=== PATIENT | female | born 1995 | race Caucasian/White ===

== ENCOUNTER 2017-12-08 11:44 | Inpatient (IN) | payer OTHER ==
[2017-12-08] MEDS ORDERED: ceFAZolin 2 GM in Premix Bag 1 BAG IV ONE (11:56)
[2017-12-08] MEDS ORDERED: Sodium Chloride 0.9% 10 ML Syringe FLUSH PRN (11:56)
[2017-12-08] MEDS ORDERED: Sodium Chloride 0.9% 2.5 ML Syringe FLUSH PRN (11:56)
[2017-12-08] MEDS ORDERED: Oxytocin/0.9 % Sodium Chloride 30 UNIT/500 ML BAG IV SCH (12:00)
[2017-12-08] MEDS ORDERED: Citric Acid/Sodium Citrate Solution 30 ML Cup PO SCH (12:00)
[2017-12-08] MEDS: Lactated Ringers 1,000 ML IV SCH ×4 (12:15→23:20)
--- NOTE | 2017-12-08 12:38 | PCM.PREANE ---
Preanesthetic Assessment - Anesthesia/Transfusion/Family Hx Anesthesia History: Prior Anesthesia Without Reaction Family History of Anesthesia Reaction: No Transfusion History: No Prior Transfusion(s) - Review of Systems General: No Symptoms Pulmonary: No Symptoms Cardiovascular: No Symptoms Gastrointestinal: No Symptoms Neurological: No Symptoms Other: Reports: None - Physical Assessment NPO Status Date: 12/07/17 Height: 1.63 m Weight: 90.265 kg ASA Class: 2 Mental Status: Alert & Oriented x3 Airway Class: Mallampati = 1 Dentition: Reports: Normal Dentition ROM/Head Extension: Full Lungs: Clear to Auscultation, Normal Respiratory Effort Cardiovascular: Regular Rate, Regular Rhythm - Lab Values: Laboratory Last Values WBC 7.50 K/uL (4.0-11.0) 12/08/17 12:12 RBC 4.24 M/uL (4.30-5.90) L 12/08/17 12:12 Hgb 12.1 g/dL (12.0-16.0) 12/08/17 12:12 Hct 36.5 % (36.0-46.0) 12/08/17 12:12 MCV 86.1 fL (80.0-98.0) 12/08/17 12:12 MCH 28.5 pg (27.0-32.0) 12/08/17 12:12 MCHC 33.2 g/dL (31.0-37.0) 12/08/17 12:12 RDW Std Deviation 47.0 fl (28.0-62.0) 12/08/17 12:12 RDW Coeff of Po 15 % (11.0-15.0) 12/08/17 12:12 Plt Count 211 K/uL (150-400) 12/08/17 12:12 MPV 10.80 fL (7.40-12.00) 12/08/17 12:12 Nucleated RBC % 0.0 /100WBC 12/08/17 12:12 Nucleated RBCs # 0 K/uL 12/08/17 12:12 - Allergies Allergies/Adverse Reactions: Allergies Allergy/AdvReac Type Severity Reaction Status Date / Time No Known Allergies Allergy Verified 12/06/17 09:15 - Anesthesia Plan Pre-Op Medication Ordered: Antacids (primary c section for breech presentation) - Acknowledgements Anesthesia Type Planned: Spinal Pt an Appropriate Candidate for the Planned Anesthesia: Yes Alternatives and Risks of Anesthesia Discussed w Pt/Guardian: Yes Pt/Guardian Understands and Agrees with Anesthesia Plan: Yes PreAnesthesia Questionnaire - Past Health History Medical/Surgical History: Denies Medical/Surgical History Gastrointestinal History: Reports: Other (See Below) Other Gastrointestinal History: heartburn during [employer] History: Reports: Endocrine/Metabolic History: Reports: Diabetes, Gestational - Past Surgical History HEENT Surgical History: Reports: Oral Surgery Other HEENT Surgeries/Procedures: wisdom teeth - SUBSTANCE USE Smoking Status *Q: Former Smoker Tobacco Use Within Last Twelve Months: No Recreational Drug Use History: No - HOME MEDS Home Medications: Home Meds Vits #93/Iron Fum/FA [ Formula Tablet] 1 each PO DAILY [History] - CURRENT (IN HOUSE) MEDS Current Meds: Current Medications Citric Acid/Sodium Citrate (Bicitra Solution) 30 ml PO .ONCE ASH Lactated Ringer's (Ringers, Lactated) 1,000 mls @ 500 mls/hr IV .BOLUS ASH Last Admin: 12/08/17 12:15 Dose: 500 mls/hr Oxytocin/Sodium Chloride (Oxytocin 30 Unit/500 Ml-Ns) 30 unit in 500 mls @ 250 mls/hr IV TITRATE ASH Sodium Chloride (Saline Flush) 10 ml FLUSH ASDIRECTED PRN PRN Reason: Keep Vein Open Sodium Chloride (Saline Flush) 2.5 ml FLUSH ASDIRECTED PRN PRN Reason: Keep Vein Open Discontinued Medications Cefazolin Sodium/Dextrose 2 gm (/ Premix) 50 mls @ 100 mls/hr IV ONETIME ONE Stop: 12/08/17 12:25
[2017-12-08] MEDS ORDERED: ePHEDrine 50 MG/ML SDV ONE (12:45)
[2017-12-08] MEDS ORDERED: Morphine PF 1 MG/ML Amp ONE (12:45)
[2017-12-08] MEDS ORDERED: Ondansetron 4 MG/2 ML SDV ONE (12:45)
[2017-12-08] MEDS ORDERED: Sodium Chloride 0.9% 20 ML ONE ×2 (12:45→12:48)
[2017-12-08] MEDS ORDERED: Oxytocin 10 Units/1 ML SDV ONE (12:45)
[2017-12-08] MEDS ORDERED: ceFAZolin 1 GM Vial ONE (12:48)
[2017-12-08] MEDS ORDERED: Octyl 2-Cyanoacrylate 1 Tube ONE (13:31)
[2017-12-08] MEDS ORDERED: Bisacodyl 10 MG Supp RECTAL PRN (13:56)
[2017-12-08] MEDS ORDERED: diphenhydrAMINE 50 MG/ML SDV IVPUSH PRN ×2 (13:56→14:06)
[2017-12-08] MEDS ORDERED: Ibuprofen 800 MG Tab PO PRN (13:56)
[2017-12-08] MEDS ORDERED: Ondansetron 4 MG/2 ML SDV IV PRN (13:56)
[2017-12-08] MEDS ORDERED: Lanolin 100% Cream 7 GM Tube TOP PRN (13:56)
--- NOTE | 2017-12-08 13:58 | PCM.LDHP ---
L&D History of Present Illness - General Date of Service: 12/08/17 Admit Problem/Dx: Patient Status Order with Admit Dx/Problem 12/08/17 11:56 Patient Status [ADT] Routine 12/08/17 13:56 Patient Status [ADT] Routine Admission Diagnosis/Problem Admission Diagnosis/Problem section Source of Information: Patient History Limitations: Reports: No Limitations - History of Present Illness Improves with: Reports: None Worsens with: Reports: None Associated Symptoms: Reports: N - Related Data Allergies/Adverse Reactions: Allergies Allergy/AdvReac Type Severity Reaction Status Date / Time No Known Allergies Allergy Verified 12/06/17 09:15 Home Medications: Home Meds Vits #93/Iron Fum/FA [ Formula Tablet] 1 each PO DAILY [History] Past Medical History - Past Health History Medical/Surgical History: Denies Medical/Surgical History Gastrointestinal History: Reports: Other (See Below) Other Gastrointestinal History: heartburn during [employer] History: Reports: Endocrine/Metabolic History: Reports: Diabetes, Gestational - Past Surgical History HEENT Surgical History: Reports: Oral Surgery Other HEENT Surgeries/Procedures: wisdom teeth Social & Family History - Family History Family Medical History: Noncontributory - Tobacco Use Smoking Status *Q: Former Smoker Tobacco Use Comment: quit 2.5 years ago - Recreational Drug Use Recreational Drug Use: No Drug Use in Last 12 Months: No H&P Review of Systems - Review of Systems: Review Of Systems: See Below General: Reports: No Symptoms HEENT: Reports: No Symptoms Pulmonary: Reports: No Symptoms Cardiovascular: Reports: No Symptoms Gastrointestinal: Reports: No Symptoms Genitourinary: Reports: No Symptoms Musculoskeletal: Reports: No Symptoms Skin: Reports: No Symptoms Psychiatric: Reports: No Symptoms Neurological: Reports: No Symptoms Hematologic/Lymphatic: Reports: No Symptoms Immunologic: Reports: No Symptoms L&D Exam - Exam Exam: See Below - Vital Signs Weight: 90.265 kg - OB Specific Contraction Intensity: Mild Movement: Active Heart Tones: Present Presentation: Breech - Exam General: Alert, Oriented HEENT: PERRLA, Conjunctiva Clear, EACs Clear, EOMI, Hearing Intact, Mucosa Moist & [place], Nares Patent, Normal Nasal Septum, Posterior Pharynx Clear, TMs Clear Neck: Supple, Trachea Midline Lungs: Clear to Auscultation, Normal Respiratory Effort Cardiovascular: Regular Rate, Regular Rhythm GI/Abdominal Exam: Normal Bowel Sounds, Soft, Non-Tender, No Organomegaly, No Distention, No Abnormal Bruit, No Mass, Pelvis Stable Rectal Exam: Normal Exam, Normal Rectal Tone Genitourinary: Normal external exam, Normal bimanual exam, Normal speculum exam Back Exam: Normal Inspection, Full Range of Motion Extremities: Normal Inspection, Normal Range of Motion, Non-Tender, No Pedal Edema, Normal Capillary Refill Skin: Warm, Dry, Intact Neurological: Cranial Nerves Intact, Reflexes Equal Bilateral Psychiatric: Alert, Normal Affect, Normal Mood - Patient Data Lab Results Last 24 hrs: Laboratory Results - last 24 hr 12/08/17 12/08/17 Range/Units 12:12 12:12 WBC 7.50 (4.0-11.0) K/uL RBC 4.24 L (4.30-5.90) M/uL Hgb 12.1 (12.0-16.0) g/dL Hct 36.5 (36.0-46.0) % MCV 86.1 (80.0-98.0) fL MCH 28.5 (27.0-32.0) pg MCHC 33.2 (31.0-37.0) g/dL RDW Std Deviation 47.0 (28.0-62.0) fl RDW Coeff of Po 15 (11.0-15.0) % Plt Count 211 (150-400) K/uL MPV 10.80 (7.40-12.00) fL Nucleated RBC % 0.0 /100WBC Nucleated RBCs # 0 K/uL Blood Type O POSITIVE Antibody Screen NEGATIVE Result Diagrams: 12/08/17 12:12 Problem List Initiated/Reviewed/Updated: Yes Orders Last 24hrs: Active Orders 24 hr Category Date Time Status Patient Status [ADT] Routine ADT 12/08/17 13:56 Ordered Ambulate [RC] PER UNIT ROUTINE Care 12/08/17 13:56 Ordered Communication Order [RC] PER UNIT ROUTINE Care 12/08/17 13:56 Ordered Communication Order [RC] PER UNIT ROUTINE Care 12/08/17 13:56 Ordered Communication Order [RC] Per Unit Routine Care 12/08/17 13:56 Ordered Non Stress Test [RC] PER UNIT ROUTINE Care 12/08/17 11:56 Active May Shower [RC] ASDIRECTED Care 12/08/17 13:56 Ordered Notify Provider Vital Signs [RC] PRN Care 12/08/17 11:58 Active Procedure Site Prep Instruct [RC] ASDIRECTED Care 12/08/17 11:56 Active RT Incentive Spirometry [RC] Q2HWA Care 12/08/17 13:56 Ordered Up ad Jayashree [RC] ASDIRECTED Care 12/08/17 11:56 Active Verify Patient Consent Obtain [RC] ASDIRECTED Care 12/08/17 11:56 Active Vital Signs [RC] PER UNIT ROUTINE Care 12/08/17 11:56 Active Vital Signs [RC] PER UNIT ROUTINE Care 12/08/17 13:56 Ordered HEMOGLOBIN/HEMATOCRIT,HH [HEME] Timed Lab 12/09/17 05:11 Ordered Acetaminophen/oxyCODONE [Percocet 325-5 MG] Med 12/08/17 13:56 Ordered 1 tab PO Q4H PRN Acetaminophen/oxyCODONE [Percocet 325-5 MG] Med 12/08/17 13:56 Ordered 2 tab PO Q4H PRN Bisacodyl [Dulcolax] Med 12/08/17 13:56 Ordered 10 mg RECTAL .ONCE PRN Citric Acid/Sodium Citrate [Bicitra Solution] Med 12/08/17 12:00 Active 30 ml PO .ONCE Docusate Sodium [Colace] Med 12/08/17 21:00 Ordered 100 mg PO BID Ibuprofen [Motrin] Med 12/08/17 13:56 Ordered 800 mg PO Q8H PRN Ketorolac [Toradol] Med 12/08/17 14:00 Ordered 30 mg IVPUSH Q6H Lactated Ringers @ 125 MLS/HR(1000ml) Med 12/08/17 14:00 Ordered Lactated Ringers [Ringers, Lactated] 1,000 ml IV ASDIRECTED Lactated Ringers [Ringers, Lactated] 1,000 ml Med 12/08/17 12:00 Active IV .BOLUS Lanolin [Lansinoh HPA] Med 12/08/17 13:56 Ordered See Dose Instructions TOP ASDIRECTED PRN Ondansetron [Zofran] Med 12/08/17 13:56 Ordered 4 mg IV Q4H PRN Oxytocin/0.9 % Sodium Chloride [Oxytocin 30 Unit/500 ML Med 12/08/17 12:00 Active -NS] 30 unit in 500 ml IV TITRATE Sodium Chloride 0.9% [Saline Flush] Med 12/08/17 11:56 Active 10 ml FLUSH ASDIRECTED PRN Sodium Chloride 0.9% [Saline Flush] Med 12/08/17 11:56 Active 2.5 ml FLUSH ASDIRECTED PRN diphenhydrAMINE [Benadryl] Med 12/08/17 13:56 Ordered 25 mg IVPUSH Q6H PRN Assess Lochia [WOMSER] Per Unit Routine Ot 12/08/17 13:56 Ordered Assess Uterine Involution [WOMSER] Per Unit Routine Ot 12/08/17 13:56 Ordered Breast Pump [WOMSER] Per Unit Routine Ot 12/08/17 13:56 Ordered Peripheral IV Discontinue [OM.PC] Routine Ot 12/08/17 13:56 Ordered Peripheral IV Insertion Adult [OM.PC] Routine Ot 12/08/17 11:56 Ordered Schedule Procedure [COMM] Per Unit Routine Ot 12/08/17 11:56 Ordered Sequential Compression Device [OM.PC] Per Unit Routine Ot 12/08/17 13:56 Ordered Resuscitation Status Routine Resus Stat 12/08/17 11:56 Ordered Medication Orders Citric Acid/Sodium Citrate (Bicitra Solution) 30 ml PO .ONCE ASH Last Admin: 12/08/17 13:13 Dose: 30 ml Lactated Ringer's (Ringers, Lactated) 1,000 mls @ 500 mls/hr IV .BOLUS ASH Last Admin: 12/08/17 13:00 Dose: 500 mls/hr Infusion: 12/08/17 13:00 Dose: 500 mls/hr Admin: 12/08/17 12:15 Dose: 500 mls/hr Oxytocin/Sodium Chloride (Oxytocin 30 Unit/500 Ml-Ns) 30 unit in 500 mls @ 250 mls/hr IV TITRATE ASH Sodium Chloride (Saline Flush) 10 ml FLUSH ASDIRECTED PRN PRN Reason: Keep Vein Open Sodium Chloride (Saline Flush) 2.5 ml FLUSH ASDIRECTED PRN PRN Reason: Keep Vein Open
--- NOTE | 2017-12-08 14:00 | PCM.OPNOTE ---
- General Post-Op/Procedure Note Date of Surgery/Procedure: 12/08/17 Operative Procedure(s): Primary C/section Pre Op Diagnosis: Term Breech presentation. Post-Op Diagnosis: Same Anesthesia Technique: Spinal Primary Surgeon: Lawson Amaral Senior Network Systems Engineer: Anusha Mistry EBL in mLs: 600 Complications: None Condition: Good
[2017-12-08] MEDS ORDERED: Naloxone 0.4 MG/ML Syringe IVPUSH PRN (14:06)
[2017-12-08] MEDS ORDERED: Nalbuphine 10 MG/ML 10 ML MDV IVPUSH PRN (14:06)
[2017-12-08] MEDS: Ketorolac 30 MG/ML SDV IVPUSH SCH ×2 (14:36→19:57)
--- NOTE | 2017-12-08 14:52 | PCM.POSTAN ---
POST ANESTHESIA ASSESSMENT - MENTAL STATUS Mental Status: Alert, Oriented - RESPIRATORY Respiratory Status: Respiratory Rate WNL, Airway Patent, O2 Saturation Stable - CARDIOVASCULAR CV Status: Pulse Rate WNL, Blood Pressure Stable - GASTROINTESTINAL GI Status: No Symptoms - POST OP HYDRATION Hydration Status: Adequate & Stable
[2017-12-08] MEDS: Docusate Sodium 100 MG Cap PO SCH (21:21)
[2017-12-09] MEDS: Ketorolac 30 MG/ML SDV IVPUSH SCH ×3 (01:59→13:36)
--- NOTE | 2017-12-09 07:36 | PCM48HPAN ---
Post Anesthesia Note - EVALUATION WITHIN 48HRS OF ANESTHETIC Vital Signs in Normal Range: Yes Patient Participated in Evaluation: Yes Respiratory Function Stable: Yes Airway Patent: Yes Cardiovascular Function Stable: Yes Hydration Status Stable: Yes Pain Control Satisfactory: Yes Nausea and Vomiting Control Satisfactory: Yes Mental Status Recovered: Yes Resp Rate: 18
[2017-12-09] MEDS: Docusate Sodium 100 MG Cap PO SCH ×2 (08:01→20:02)
--- NOTE | 2017-12-09 08:19 | PCM.PNPP ---
- General Info Date of Service: 12/09/17 Functional Status: Reports: Pain Controlled - Review of Systems General: Reports: No Symptoms HEENT: Reports: No Symptoms Pulmonary: Reports: No Symptoms Cardiovascular: Reports: No Symptoms Gastrointestinal: Reports: No Symptoms Genitourinary: Reports: No Symptoms Musculoskeletal: Reports: No Symptoms Skin: Reports: No Symptoms Neurological: Reports: No Symptoms Psychiatric: Reports: No Symptoms - Patient Data Vital Signs - Most Recent: Last Vital Signs Temp 36.4 C 12/09/17 04:00 Pulse 79 12/09/17 04:00 Resp 18 12/09/17 07:36 BP 102/63 12/09/17 04:00 Pulse Ox 99 12/09/17 06:00 Weight - Most Recent: 90.265 kg I&O - Last 24 Hours: Intake & Output 12/08/17 12/09/17 12/09/17 22:59 06:59 14:59 Intake Total 300 Output Total 200 400 Balance -200 -100 Lab Results - Last 24 Hours: Laboratory Results - last 24 hr 12/08/17 12/08/17 12/09/17 Range/Units 12:12 12:12 05:51 WBC 7.50 (4.0-11.0) K/uL RBC 4.24 L (4.30-5.90) M/uL Hgb 12.1 9.7 L (12.0-16.0) g/dL Hct 36.5 29.9 L (36.0-46.0) % MCV 86.1 (80.0-98.0) fL MCH 28.5 (27.0-32.0) pg MCHC 33.2 (31.0-37.0) g/dL RDW Std Deviation 47.0 (28.0-62.0) fl RDW Coeff of Po 15 (11.0-15.0) % Plt Count 211 (150-400) K/uL MPV 10.80 (7.40-12.00) fL Nucleated RBC % 0.0 /100WBC Nucleated RBCs # 0 K/uL Blood Type O POSITIVE Antibody Screen NEGATIVE Med Orders - Current: Current Medications Bisacodyl (Dulcolax) 10 mg RECTAL .ONCE PRN PRN Reason: Constipation Citric Acid/Sodium Citrate (Bicitra Solution) 30 ml PO .ONCE ASH Last Admin: 12/08/17 13:13 Dose: 30 ml Diphenhydramine HCl (Benadryl) 25 mg IVPUSH Q6H PRN PRN Reason: Itching or Nausea Last Admin: 12/08/17 20:05 Dose: 25 mg Diphenhydramine HCl (Benadryl) 25 mg IVPUSH Q4H PRN PRN Reason: Itching Stop: 12/09/17 14:06 Docusate Sodium (Colace) 100 mg PO BID [facility] Last Admin: 12/09/17 08:01 Dose: 100 mg Emollient Ointment (Lansinoh Hpa) 0 gm TOP ASDIRECTED PRN PRN Reason: Sore Nipples Lactated Ringer's (Ringers, Lactated) 1,000 mls @ 500 mls/hr IV .BOLUS [facility], [facility]1983 Last Admin: 12/08/17 13:00 Dose: 500 mls/hr Oxytocin/Sodium Chloride (Oxytocin 30 Unit/500 Ml-Ns) 30 unit in 500 mls @ 250 mls/hr IV TITRATE [facility], [facility]1983 Lactated Ringer's (Ringers, Lactated) 1,000 mls @ 125 mls/hr IV ASDIRECTED [facility], [facility] Last Admin: 12/08/17 23:20 Dose: 125 mls/hr Ibuprofen (Motrin) 800 mg PO Q8H PRN PRN Reason: mild pain or fever Ketorolac Tromethamine (Toradol) 30 mg IVPUSH Q6H [facility]1983 Stop: 12/09/17 14:01 Last Admin: 12/09/17 08:01 Dose: 30 mg Nalbuphine HCl (Nubain) 5 mg IVPUSH Q3H PRN PRN Reason: Pruritis Stop: 12/09/17 14:06 Naloxone HCl (Narcan) 0.1 mg IVPUSH ONETIME PRN PRN Reason: Respiratory Depression Stop: 12/09/17 14:06 Ondansetron HCl (Zofran) 4 mg IV Q4H PRN PRN Reason: Nausea/Vomiting Last Admin: 12/08/17 17:28 Dose: 4 mg Oxycodone/Acetaminophen (Percocet 325-5 Mg) 1 tab PO Q4H PRN PRN Reason: Pain (moderate 4-6) Oxycodone/Acetaminophen (Percocet 325-5 Mg) 2 tab PO Q4H PRN PRN Reason: Pain (moderate 4-6) Sodium Chloride (Saline Flush) 10 ml FLUSH ASDIRECTED PRN PRN Reason: Keep Vein Open Sodium Chloride (Saline Flush) 2.5 ml FLUSH ASDIRECTED PRN PRN Reason: Keep Vein Open Discontinued Medications Cefazolin Sodium (Ancef) Confirm Administered Dose 2 gm .ROUTE .STK-MED ONE Stop: 12/08/17 12:49 Ephedrine Sulfate (Ephedrine Sulfate) Confirm Administered Dose 50 mg .ROUTE .STK-MED ONE Stop: 12/08/17 12:46 Cefazolin Sodium/Dextrose 2 gm (/ Premix) 50 mls @ 100 mls/hr IV ONETIME ONE Stop: 12/08/17 12:25 Last Admin: 12/08/17 15:29 Dose: Not Given Sodium Chloride (Normal Saline) Confirm Administered Dose 20 mls @ as directed .ROUTE .STK-MED ONE Stop: 12/08/17 12:46 Sodium Chloride (Normal Saline) Confirm Administered Dose 20 mls @ as directed .ROUTE .STK-MED ONE Stop: 12/08/17 12:49 Morphine Sulfate (Duramorph Pf) Confirm Administered Dose 1 mg .ROUTE .STK-MED ONE Stop: 12/08/17 12:46 Octyl Cyanoacrylate (Dermabond Advance) Confirm Administered Dose 1 applic .ROUTE .STK-MED ONE Stop: 12/08/17 13:32 Ondansetron HCl (Zofran) Confirm Administered Dose 4 mg .ROUTE .STK-MED ONE Stop: 12/08/17 12:46 Oxytocin (Pitocin) Confirm Administered Dose 20 unit .ROUTE .STK-MED ONE Stop: 12/08/17 12:46 - Infant Interaction Infant Disposition, : in Room with Family Interaction: Holding Feeding: Attempted ; Nursed Fair/Poor Support Person: , Significant Other - Recovery Exam Fundal Tone: Firm Fundal Level: At Umbilicus Fundal Placement: Right Lochia Amount: Scant Lochia Color: Rubra/Red Bladder Status: Indwelling Catheter in Place Urinary Elimination: Indwelling Catheter - Exam General: Alert, Oriented HEENT: Pupils Equal Neck: Supple Lungs: Clear to Auscultation, Normal Respiratory Effort Cardiovascular: Regular Rate, Regular Rhythm GI/Abdominal Exam: Normal Bowel Sounds, Soft, Non-Tender, No Organomegaly, No Distention, No Abnormal Bruit, No Mass, Pelvis Stable Extremities: Normal Inspection, Normal Range of Motion, Non-Tender, No Pedal Edema, Normal Capillary Refill Skin: Warm, Dry, Intact Wound/Incisions: Healing Well Neurological: No New Focal Deficit Psy/Mental Status: Alert, Normal Affect, Normal Mood - Problem List Review Problem List Initiated/Reviewed/Updated: Yes - My Orders Last 24 Hours: My Active Orders 12/08/17 11:56 Up ad Jayashree [RC] ASDIRECTED Vital Signs [RC] PER UNIT ROUTINE Sodium Chloride 0.9% [Saline Flush] 10 ml FLUSH ASDIRECTED PRN Sodium Chloride 0.9% [Saline Flush] 2.5 ml FLUSH ASDIRECTED PRN Peripheral IV Insertion Adult [OM.PC] Routine Schedule Procedure [COMM] Per Unit Routine Resuscitation Status Routine 12/08/17 11:58 Notify Provider Vital Signs [RC] PRN 12/08/17 12:00 Citric Acid/Sodium Citrate [Bicitra Solution] 30 ml PO .ONCE Lactated Ringers [Ringers, Lactated] 1,000 ml IV .BOLUS Oxytocin/0.9 % Sodium Chloride [Oxytocin 30 Unit/500 ML-NS] 30 unit in 500 ml IV TITRATE 12/08/17 13:56 Patient Status [ADT] Routine Ambulate [RC] PER UNIT ROUTINE Communication Order [RC] PER UNIT ROUTINE Communication Order [RC] PER UNIT ROUTINE Communication Order [RC] Per Unit Routine May Shower [RC] ASDIRECTED RT Incentive Spirometry [RC] Q2HWA Vital Signs [RC] PER UNIT ROUTINE Acetaminophen/oxyCODONE [Percocet 325-5 MG] 1 tab PO Q4H PRN Acetaminophen/oxyCODONE [Percocet 325-5 MG] 2 tab PO Q4H PRN Bisacodyl [Dulcolax] 10 mg RECTAL .ONCE PRN Ibuprofen [Motrin] 800 mg PO Q8H PRN Lanolin [Lansinoh HPA] See Dose Instructions TOP ASDIRECTED PRN Ondansetron [Zofran] 4 mg IV Q4H PRN diphenhydrAMINE [Benadryl] 25 mg IVPUSH Q6H PRN Assess Lochia [WOMSER] Per Unit Routine Assess Uterine Involution [WOMSER] Per Unit Routine Breast Pump [WOMSER] Per Unit Routine Peripheral IV Discontinue [OM.PC] Routine Sequential Compression Device [OM.PC] Per Unit Routine 12/08/17 14:00 Ketorolac [Toradol] 30 mg IVPUSH Q6H Lactated Ringers [Ringers, Lactated] 1,000 ml IV ASDIRECTED 12/08/17 21:00 Docusate Sodium [Colace] 100 mg PO BID - Assessment Assessment:: S/P C/Section PO# 1 doing well regular care
[2017-12-09] MEDS: Acetaminophen/oxyCODONE 325-5 MG Tab PO PRN ×3 (15:43→23:50)
[2017-12-10] MEDS: Acetaminophen/oxyCODONE 325-5 MG Tab PO PRN ×2 (04:49→09:06)
--- NOTE | 2017-12-10 08:21 | PCM.DCSUM1 ---
Discharge Summary - Hospital Course Free Text/Narrative:: Discharge home with . Follow up in 7-10 days for incision check and 6 weeks for post visit. Diagnosis: Stroke: No - Discharge Data Discharge Date: 12/10/17 Discharge Disposition: Home, Self-Care 01 Condition: Good - Discharge Diagnosis/Problem(s) (1) delivery indicated due to breech presentation SNOMED Code(s): 678267233, [id number] ICD Code: O32.1XX0 - MATERNAL CARE FOR BREECH PRESENTATION, UNSP Status: Acute Priority: High Current Visit: Yes - Patient Summary/Data Operative Procedure(s) Performed: Primary C/section - Patient Instructions Diet: Usual Diet as Tolerated Activity: As Tolerated, No Strenuous Activities, Rest and Relax Today Driving: May Drive Today (If not taking pain medication) Showering/Bathing: May Shower Wound/Incision Care: Keep Operative Site/Wound Site Clean and Dry Notify Provider of: Fever, Increased Pain, Swelling and Redness, Drainage, Nausea and/or Vomiting Other/Special Instructions: Discharge home with . Follow up in 7-10 days for incision check and 6 weeks for post visit. - Discharge Plan Home Medications: Home Meds Vits #93/Iron Fum/FA [ Formula Tablet] 1 each PO DAILY [History] - General Info Date of Service: 12/10/17 Admission Dx/Problem (Free Text: Patient Status Order with Admit Dx/Problem 12/08/17 11:56 Patient Status [ADT] Routine 12/08/17 13:56 Patient Status [ADT] Routine Admission Diagnosis/Problem Admission Diagnosis/Problem section Functional Status: Reports: Pain Controlled, Tolerating Diet, Ambulating, Urinating - Review of Systems General: Reports: No Symptoms HEENT: Reports: No Symptoms Pulmonary: Reports: No Symptoms Cardiovascular: Reports: No Symptoms Gastrointestinal: Reports: No Symptoms Genitourinary: Reports: No Symptoms Musculoskeletal: Reports: No Symptoms Skin: Reports: No Symptoms Neurological: Reports: No Symptoms Psychiatric: Reports: No Symptoms - Patient Data Vitals - Most Recent: Last Vital Signs Temp 36.5 C 12/10/17 05:50 Pulse 83 12/10/17 00:00 Resp 16 12/10/17 00:00 BP 111/76 12/10/17 05:50 Pulse Ox 99 12/10/17 00:00 Weight - Most Recent: 90.265 kg I&O - Last 24 hours: Intake & Output 12/09/17 12/10/17 12/10/17 22:59 06:59 14:59 Output Total 400 Balance -400 Med Orders - Current: Current Medications Bisacodyl (Dulcolax) 10 mg RECTAL .ONCE PRN PRN Reason: Constipation Citric Acid/Sodium Citrate (Bicitra Solution) 30 ml PO .ONCE ASH Last Admin: 12/08/17 13:13 Dose: 30 ml Diphenhydramine HCl (Benadryl) 25 mg IVPUSH Q6H PRN PRN Reason: Itching or Nausea Last Admin: 12/08/17 20:05 Dose: 25 mg Docusate Sodium (Colace) 100 mg PO BID ASH Last Admin: 12/09/17 20:02 Dose: 100 mg Emollient Ointment (Lansinoh Hpa) 0 gm TOP ASDIRECTED PRN PRN Reason: Sore Nipples Last Admin: 12/09/17 17:45 Dose: 7 gm Lactated Ringer's (Ringers, Lactated) 1,000 mls @ 500 mls/hr IV .BOLUS [facility] Last Admin: 12/08/17 13:00 Dose: 500 mls/hr Oxytocin/Sodium Chloride (Oxytocin 30 Unit/500 Ml-Ns) 30 unit in 500 mls @ 250 mls/hr IV TITRATE ASH Lactated Ringer's (Ringers, Lactated) 1,000 mls @ 125 mls/hr IV ASDIRECTED [facility] Last Admin: 12/08/17 23:20 Dose: 125 mls/hr Ibuprofen (Motrin) 800 mg PO Q8H PRN PRN Reason: mild pain or fever Last Admin: 12/10/17 06:01 Dose: 800 mg Ondansetron HCl (Zofran) 4 mg IV Q4H PRN PRN Reason: Nausea/Vomiting Last Admin: 12/08/17 17:28 Dose: 4 mg Oxycodone/Acetaminophen (Percocet 325-5 Mg) 1 tab PO Q4H PRN PRN Reason: Pain (moderate 4-6) Last Admin: 12/10/17 04:49 Dose: 1 tab Oxycodone/Acetaminophen (Percocet 325-5 Mg) 2 tab PO Q4H PRN PRN Reason: Pain (moderate 4-6) Last Admin: 12/09/17 20:00 Dose: 2 tab Sodium Chloride (Saline Flush) 10 ml FLUSH ASDIRECTED PRN PRN Reason: Keep Vein Open Sodium Chloride (Saline Flush) 2.5 ml FLUSH ASDIRECTED PRN PRN Reason: Keep Vein Open Discontinued Medications Cefazolin Sodium (Ancef) Confirm Administered Dose 2 gm .ROUTE .STK-MED ONE Stop: 12/08/17 12:49 Diphenhydramine HCl (Benadryl) 25 mg IVPUSH Q4H PRN PRN Reason: Itching Stop: 12/09/17 14:06 Ephedrine Sulfate (Ephedrine Sulfate) Confirm Administered Dose 50 mg .ROUTE .STK-MED ONE Stop: 12/08/17 12:46 Cefazolin Sodium/Dextrose 2 gm (/ Premix) 50 mls @ 100 mls/hr IV ONETIME ONE Stop: 12/08/17 12:25 Last Admin: 12/08/17 15:29 Dose: Not Given Sodium Chloride (Normal Saline) Confirm Administered Dose 20 mls @ as directed .ROUTE .STK-MED ONE Stop: 12/08/17 12:46 Sodium Chloride (Normal Saline) Confirm Administered Dose 20 mls @ as directed .ROUTE .STK-MED ONE Stop: 12/08/17 12:49 Ketorolac Tromethamine (Toradol) 30 mg IVPUSH Q6H ASH Stop: 12/09/17 14:01 Last Admin: 12/09/17 13:36 Dose: 30 mg Morphine Sulfate (Duramorph Pf) Confirm Administered Dose 1 mg .ROUTE .STK-MED ONE Stop: 12/08/17 12:46 Nalbuphine HCl (Nubain) 5 mg IVPUSH Q3H PRN PRN Reason: Pruritis Stop: 12/09/17 14:06 Naloxone HCl (Narcan) 0.1 mg IVPUSH ONETIME PRN PRN Reason: Respiratory Depression Stop: 12/09/17 14:06 Octyl Cyanoacrylate (Dermabond Advance) Confirm Administered Dose 1 applic .ROUTE .STK-MED ONE Stop: 12/08/17 13:32 Ondansetron HCl (Zofran) Confirm Administered Dose 4 mg .ROUTE .STK-MED ONE Stop: 12/08/17 12:46 Oxytocin (Pitocin) Confirm Administered Dose 20 unit .ROUTE .STK-MED ONE Stop: 12/08/17 12:46 - Exam General: Reports: Alert, Oriented, Cooperative Lungs: Reports: Clear to Auscultation, Normal Respiratory Effort Cardiovascular: Reports: Regular Rate, Regular Rhythm, No Murmurs GI/Abdominal Exam: Normal Bowel Sounds, Soft, Non-Tender, No Organomegaly, No Distention, No Abnormal Bruit, No Mass, Pelvis Stable (Female) Exam: Vaginal Bleeding Rectal (Female) Exam: Deferred Back Exam: Reports: Normal Inspection, Full Range of Motion Extremities: Normal Inspection, Normal Range of Motion, Non-Tender, No Pedal Edema, Normal Capillary Refill Skin: Reports: Warm, Dry, Intact Wound/Incisions: Reports: Healing Well Neurological: Reports: No New Focal Deficit, Normal Speech, Normal Tone, Strength Equal Bilateral Psy/Mental Status: Reports: Alert, Normal Affect, Normal Mood
[2017-12-10 08:31] VITALS: BP 112/68
[2017-12-10] MEDS: Docusate Sodium 100 MG Cap PO SCH (09:05)
--- NOTE | 2017-12-11 06:12 | OR ---
SURGEON: Lawson Amaral MD DATE OF PROCEDURE: PREOPERATIVE DIAGNOSIS: Intrauterine is term arsh breech presentation. POSTOPERATIVE DIAGNOSIS: Intrauterine is term arsh breech presentation. OPERATION PERFORMED: Primary low transverse section. STRAIGHT TRUCK DRIVER: Anusha Mistry CNM. ANESTHESIA: Spinal. ANESTHESIOLOGIST: Mr. Metcalf. ESTIMATED BLOOD LOSS: 650 mL. COMPLICATIONS: None. FINDING: Male fetus in arsh breech presentation. INDICATIONS FOR SURGERY: This patient is primigravida. She is 39 weeks. She is followed in our clinic. She had no complication. However, the patient was on breech presentation that was confirmed by ultrasound. The patient declined external version, and she was admitted for elective repeat section. PROCEDURE IN DETAIL: The patient was brought to the OR, properly identified. After adequate level of spinal anesthesia with a Ashley catheter in the bladder, a time-out was taken. The patient was properly identified, and the patient was prepped and draped in a sterile fashion as usual. A low transverse Pfannenstiel skin incision was done. The Loan fascia and rectus fascia were opened in the direction of the incision. The two recti muscles were . Peritoneal cavity was entered. Bladder flap was raised in the usual manner pushing the bladder away from the lower uterine segment and then low transverse uterine incision extending with the hand. The fetus was in a breech presentation, delivered without any problem. The fetus cried immediately. Later on, scores reported to be 7 and 9. The weight is not available. The placenta delivered spontaneous, complete, and intact; and repair of the lower uterine segment was done with 2-0 Vicryl continuous interlocking in two layers. Reperitonealization was done with 3-0 Vicryl continuous. Inspection of the operative field shows no oozing, no bleeding. The peritoneal cavity was evacuated completely from all blood clots and closed with 3-0 Vicryl continuous. The rectus fascia was closed with #1 PDS double strand continuous, the Loan fascia with 3-0 Vicryl continuous. The skin was closed in a subcuticular fashion and Dermabond. Instrument and sponge count was correct. The patient tolerated the procedure well, went to the recovery room in stable general condition. SEBAS / CAROLYN /[id number]
== END 2017-12-10 11:05 | disposition home or self-care (01) | DRG 766 ==
LOC: MW.OB 11:44 → OBSVTOIN 11:56 → MW.OB 11:56
PROVIDERS: ADMIT Obstetrics & Gynecology; ATTEND Obstetrics & Gynecology
PROC: 10D00Z1 Extraction of Products of Conception, Low, Open Approach (ICD-10-PCS; principal; 2017-12-08)
DX: O32.1XX0 Maternal care for breech presentation, not applicable or unspecified (principal); Z3A.39 39 weeks gestation of pregnancy; Z37.0 Single live birth; O24.420 Gestational diabetes mellitus in childbirth, diet controlled; O99.214 Obesity complicating childbirth; E66.9 Obesity, unspecified; Z68.34 Body mass index [BMI] 34.0-34.9, adult
CPT/HCPCS: 36415; 59025; 85014; 85018; 85027; 86850; 86900; 86901; A9270-GY; J0690; J1200; J1885; J2274; J2405; J2590; J7120